=== PATIENT | male | born 1995 | race Two or more races ===

== ENCOUNTER 2024-12-31 17:53 | Emergency (ER) | payer OTHER ==
[~2024-12-31] VITALS: Ht 167.6 cm; Wt 142.9 kg
[2024-12-31] MEDS ORDERED: ACETAMINOPHEN 325 MG TABLET ONE (18:47)
[2024-12-31] MEDS: ACETAMINOPHEN 325 MG TABLET PO ONE (18:52)
[2024-12-31] MEDS ORDERED: IBUP100O21 PO (19:20)
[2024-12-31] MEDS ORDERED: ACET-2668 PO (19:20)
[2024-12-31] MEDS ORDERED: AMOX200S9 PO (19:20)
[2024-12-31 19:30] VITALS: BP 127/80; TEMP 100.7; O2SAT 98
== END 2024-12-31 19:31 | disposition home or self-care (01) ==
LOC: ER 17:53
DX: J02.0 Streptococcal pharyngitis (principal)